=== PATIENT | male | born 1925 | race Caucasian/White ===

== ENCOUNTER 2017-04-21 05:29 | Emergency (ER) | payer MEDICARE, BC ==
[2017-04-21] MEDS: IV NORMAL SALINE 1000ML BAG 1,000 ML IV (06:15)
[2017-04-21 06:48] LABS: ANION GAP 7 (6-14); BLOOD UREA NITROGEN 30 mg/dL (8-26); CALCIUM 7.6 mg/dL (8.5-10.1); CARBON DIOXIDE 33 mmol/L (21-32); CHLORIDE 102 mmol/L (98-107); CREATININE 1.6 mg/dL (0.7-1.3); GFR 40.9; GLUCOSE 108 mg/dL (70-99); POTASSIUM 3.6 mmol/L (3.5-5.1); SODIUM 142 mmol/L (136-145)
[2017-04-21 06:50] LABS: PARTIAL THROMBOPLASTIN TIME 78 SEC (24-38); PROTHROMBIN TIME PATIENT 43.7 SEC (11.7-14.0)
[2017-04-21 06:54] LABS: ALBUMIN 3.4 g/dL (3.4-5.0); ALK PHOS 66 U/L (46-116); ALT (SGPT) 26 U/L (16-63); AST (SGOT) 25 U/L (15-37); DIRECT BILIRUBIN 0.2 mg/dL (0.0-0.2); MAGNESIUM 1.9 mg/dL (1.8-2.4); TOTAL BILIRUBIN 0.9 mg/dL (0.2-1.0); TOTAL PROTEIN 6.2 g/dL (6.4-8.2)
[2017-04-21 06:56] LABS: TROPONINI 0.017 ng/mL (0.000-0.055)
[2017-04-21 07:01] LABS: NT-PRO BNP 731 pg/mL (0-449)
[2017-04-21 07:01] LABS: CKMB INDEX 1.2 % (0-4); CKMB MASS 1.9 ng/mL (0.0-3.6); CREATINE KINASE 157 U/L (39-308)
[2017-04-21 07:34] LABS: INFLUENZA A PATIENT POSITIVE (NEGATIVE); INFLUENZA B PATIENT NEGATIVE (NEGATIVE); OBC FLU VALID
[2017-04-21 08:17] LABS: ADD MAN DIFF? NO
[2017-04-21 08:24] LABS: BASO % 0 % (0-3); EOS % 0 % (0-3); HEMOGLOBIN 12.3 g/dL (13.0-17.5); LYMPH # 1.1 x10^3/uL (1.0-4.8); LYMPH % 17 % (24-48); MEAN CORPUSCULAR HEMOGLOBIN 30 pg (25-35); MEAN CORPUSCULAR HGB CONC 34 g/dL (31-37); MEAN CORPUSCULAR VOLUME 87 fL (79-100); MONO # 0.8 x10^3/uL (0.0-1.1); MONO % 12 % (0-9); NEUT # 4.8 x10^3uL (1.8-7.7); NEUT % 70 % (31-73); PLATELET COUNT 113 x10^3/uL (140-400); RED BLOOD COUNT 4.15 x10^6/uL (4.30-5.70); RED CELL DISTRIBUTION WIDTH 13.5 % (11.5-14.5); WHITE BLOOD COUNT 6.8 x10^3/uL (4.0-11.0)
[2017-04-21] MEDS: OSELTAMIVIR 75 MG CAPSULE PO (09:03)
[2017-04-21] MEDS: 0.9 % SODIUM CHLORIDE 10 ML DISP.SYRIN. IV (09:03)
== END 2017-04-21 09:10 | disposition home or self-care (01) ==
LOC: ER 05:29
DX: S80.11XA Contusion of right lower leg, initial encounter (principal); N28.9 Disorder of kidney and ureter, unspecified; E05.90 Thyrotoxicosis, unspecified without thyrotoxic crisis or storm; I25.10 Atherosclerotic heart disease of native coronary artery without angina pectoris; Z86.718 Personal history of other venous thrombosis and embolism; Z79.01 Long term (current) use of anticoagulants; Z87.891 Personal history of nicotine dependence; Z86.711 Personal history of pulmonary embolism; Z95.4 Presence of other heart-valve replacement; X58.XXXA Exposure to other specified factors, initial encounter; Y93.89 Activity, other specified; Y92.89 Other specified places as the place of occurrence of the external cause; Y99.8 Other external cause status
CPT/HCPCS: 36415; 71045; 80048; 80076; 82553; 83605; 83735; 83880; 84443; 84484; 85025; 85610; 85730; 87040; 87804; 87804-59; 93005; 93971; 96360; 99285-25; J7030